=== PATIENT | male | born 1965 | race Caucasian/White ===

== ENCOUNTER 2018-11-23 05:42 | Observation (INO) | payer BC ==
[2018-11-17 13:31] LABS: HEMATOCRIT 45.4 % (42.0-52.0); HEMOGLOBIN 15.6 gm/dL (14.0-18.0); MCH 30.1 pg (26.0-34.0); MCHC 34.5 g/dL (28.0-37.0); MCV 87.2 fL (80.0-100.0); RBC 5.2 mil/uL (4.50-6.00); RDW 13.3 % (10.5-14.5); URINE BILIRUBIN NEGATIVE (Negative); URINE BLOOD NEGATIVE (Negative); URINE CLARITY SL CLOUDY; URINE COLOR YELLOW; URINE GLUCOSE-RANDOM* NEGATIVE (Negative); URINE KETONES NEGATIVE (Negative); URINE LEUKOCYTES-REFLEX NEGATIVE (Negative); URINE NITRITE-REFLEX NEGATIVE (Negative); URINE PROTEIN (DIPSTICK) NEGATIVE (Negative); URINE UROBILINOGEN 0.2 E.U./dl (0.2-1.0); WBC 6.1 thou/uL (4.0-11.0)
[2018-11-17 13:43] LABS: ALBUMIN 4.5 g/dL (3.4-5.0); CALCIUM 10.1 mg/dL (8.5-10.1); CREATININE 0.7 mg/dL (0.7-1.3); POTASSIUM 3.9 mmol/L (3.5-5.1)
[~2018-11-23] VITALS: Ht 175.3 cm; Wt 104.3 kg
[~2018-11-23 05:42] MED LIST: ASPIR 8181 M1 PO; CLONAZEPAM 1 MG1 M1 PO; FISH OIL 1,001000 M2 PO; GLUCOSAMINE &1 EAC1 PO; HYZAAR 100-251 EACH PO; MAGOX 400400 MG PO; METOPROLOL TART25 MG PO; NABUMETONE 750750 M1 PO; NASAL SPRAY30 M3 NASAL; PRILOSEC 20 MG20 MG PO; VITAMIN D1000 UNI1 PO; VITAMIN E400 UNI7 PO; ZYRTEC10 M5 PO
[2018-11-23 08:45] VITALS: BP 121/74
[2018-11-23 16:25] VITALS: BP 122/61
--- NOTE | 2018-11-23 19:38 | NUR ---
PATIENT ARRIVED ON UNIT PT ALERT XS 4. IV FLUIDS STARTED AND HAS IV ABT. HAS PICCO DRSG TO RIGHT KNEE. POLAR PACK. SCD'S ON. HAS REG DIET DINNER. DR ZUNIGA HERE TO SEE PATIENT. HAS XAVIER HOSE ON. ROOM AIR. PT GIVEN PRN PAIN MED.
[2018-11-23 19:45] VITALS: BP 136/74
[2018-11-23] MEDS ORDERED: MELATONIN5 M1 PO (21:13)
[2018-11-24 00:04] VITALS: BP 112/61
[2018-11-24 05:35] LABS: HEMATOCRIT 36.8 % (42.0-52.0); HEMOGLOBIN 12.6 gm/dL (14.0-18.0); MCH 29.9 pg (26.0-34.0); MCHC 34.2 g/dL (28.0-37.0); MCV 87.2 fL (80.0-100.0); RBC 4.22 mil/uL (4.50-6.00); RDW 13.3 % (10.5-14.5); WBC 13.1 thou/uL (4.0-11.0)
[2018-11-24 05:45] VITALS: BP 125/65
--- NOTE | 2018-11-24 07:43 | NUR ---
ASSUMED CARE AT 1900, ASSESSMENT COMPLETED. PT REPORTS PAIN IN RIGHT KNEE IS 7 OR 8 OUT OF 10, REPORTS THE PRN OXY MAKES HIM FEEL DROWSY--ASKED IF HE COULD HAVE HYDROCODONE ORDERED FOR DURING THE DAY IT KEEPS HIM AWAKE AND CONTROLS THE PAIN. DENIES NAUSEA, GOOD APPETITE OVERNIGHT, DENIES SOB--USING I.S. FREQUENTLY OVERNIGHT. HAS GOOD MOVEMENT IN RIGHT LEG WITH STRONG PULSES AND BRISK BLOOD FLOW. GENET DRESSING INTACT, SCD'S ON, POLAR PACK IN PLACE. LIKELY D/C HOME TODAY. NO OTHER CONCERNS, WILL CONTINUE TO MONITOR.
[2018-11-24 08:34] VITALS: BP 122/66
--- NOTE | 2018-11-24 08:47 | O ---
[address] [address] OPERATIVE REPORT Name: ELVIA DAVIDSON [facility]: [id number] Admission: 11/23/18 ������������������ Attend Phys: Glenroy Pinedo MD Discharge: ������������������ Date of : 69 Report #: [id number] THIS REPORT FOR: //name// CC: FAM unknown GLENROY МАРИЯ Pinedo DATE OF SERVICE: 11/23/2018 SERVICE: Orthopedics. FACILITY: [place]. SURGEON: Glenroy Pinedo MD LAW OFFICE MANAGER: Elda Godinez NP INDICATION FOR ASSISTANCE: Extremity positioning, retraction and assisting with reconstruction. PREOPERATIVE DIAGNOSIS: End-stage osteoarthritis, right knee. POSTOPERATIVE DIAGNOSIS: End-stage osteoarthritis, right knee. PROCEDURE: Right total knee arthroplasty with computer navigated robotic assistance. COMPLICATIONS: None. DRAINS: None. SPECIMENS: None. ANESTHESIA: General with regional. FINDINGS: 1. [employer] size 7 Oxinium femoral component with size 6 tibia, size 35 polyethylene insert and 9 mm poly tray. 2. The patient has slightly atypical anatomy that necessitated downsizing of the tibial component, which appears undersized medial to lateral, but was more appropriately sized in the front to back orientation. 3. Well balanced knee at the conclusion of the procedure. HISTORY: The patient is a 53-year-old gentleman with a history of end-stage osteoarthritis of the right knee that we have treated conservatively for quite some time including rest, activity modification, and physical therapy. He tried [address] [place] [address] OPERATIVE REPORT Name: ELVIA DAVIDSON Room #: 427-P [facility]..#: [id number] Admission: 11/23/18 ������������������ Attend Phys: Glenroy Pinedo MD Discharge: ������������������ Date of : 69 Report #: [id number] pharmaceutical management, all without sufficient relief. He had advanced osteoarthritis with joint space collapse, sclerosis and osteophyte formation with residual deformity and he wished to have definitive surgical management. Risks, benefits, alternatives and indications of surgery were discussed with him in detail. Risks include but not limited to pain, bleeding, infection, injury to nerves or blood vessels, persistent pain despite surgical intervention, failure of any repairs, reconstruction, progression of injury, need for further surgery including revision as well as complications related to anesthesia such as stroke, heart attack, pulmonary complications, thromboembolic disease and . Despite these risks, he wished to proceed. PROCEDURE IN DETAIL: After the right lower extremity was correctly identified in the preoperative holding area as the operative extremity, the patient underwent placement of a single shot regional nerve block. He was then taken to the operating room, where general anesthesia was induced without complication. He was padded appropriately. Prophylactic antibiotics were administered at appropriate time. Tourniquet was applied to the right leg. Right leg was then prepped and draped in standard sterile fashion. Timeout procedure was performed. Standard anterior approach was made and full thickness skin flaps were developed and medial parapatellar arthrotomy was developed and then the knee was exposed. The retropatellar fat pad was resected as were the cruciates and the anterior horns of the medial and lateral menisci. The osteophytes were resected. The [employer] instrumentation was then used to map out the patient's anatomy as well as the alignment to establish optimal positioning and sizing of the final implant. The robotic assistance was then used to prepare the distal cutting block position and the 5-in-1 distal cutting block was then placed. Femoral cuts were made. The tibia was then mapped and then the tibial cutting block was placed and the tibial cut was made as well. We assessed balancing. At that point, the knee was very well balanced in appropriate alignment in both flexion and extension and then proceeded with the arthroplasty further. The notch was prepared. The meniscal remnants were removed. The posterior osteophytes were resected after the trial was placed and then the patellar component was prepared for a 35 mm patellar inset button with the button medialized. Trials were placed. The knee was taken through full range of motion. It was found to be well balanced in flexion and extension with the 9 mm trial, so we elected to proceed with the final implants and completed the preparation of the bone and then cemented the final implants into position. The periarticular blockade was used to inject the soft tissues posteriorly, medially and laterally as well as anteriorly. After the implants were placed and the excess cement was removed, the trial poly was placed and then tourniquet was let down and hemostasis was achieved. The trial was then assessed again. I was happy with the 9 mm trial, so were placed the final 9 mm poly after thoroughly irrigating the knee once more and [address] [address] OPERATIVE REPORT Name: ELVIA DAVIDSON Room #: 427-P ADM Ariel Burnette#: [id number] Admission: 11/23/18 ������������������ Attend Phys: Glenroy Pinedo MD Discharge: ������������������ Date of : 69 Report #: [id number] then felt the knee to be stable with a new poly in place. Note that, the size 6 tibia was a better fit front to back. He had an oblong shaped tibia in terms of medial to lateral, so the tibial component is somewhat undersized. I did remove medial osteophytes to address that to some extent and allow for better balancing, which addressed a slight medial soft tissue contracture that he had on both the intraoperative assessment and the navigated calculations. With the final implants in place and hemostasis achieved, 1 gram of vancomycin powder was placed within the knee and then the arthrotomy was closed with 0 Vicryl suture in a [id number] interrupted fashion and gravity flexion test was performed. There was minimal bleeding, so no drain was utilized. Skin was then closed with 2-0 Vicryl, followed by running subcuticular 3-0 Monocryl and the robotic assistance. Stab incisions were closed as well. Sterile dressing was applied, followed by compression stocking and a cold therapy device. The patient was then awakened from anesthesia and taken to recovery room in stable condition. No complications. All counts were correct. ��������������������������������������������� <ELECTRONICALLY SIGNED> ���������������������������������������� By: Glenroy Pinedo MD ��������������������������������������������� 11/24/18 [id number] Glenroy Pinedo MD /nt
[2018-11-24 08:55] LABS: CALCIUM 8.6 mg/dL (8.5-10.1); CREATININE 0.9 mg/dL (0.7-1.3); POTASSIUM 3.7 mmol/L (3.5-5.1)
--- NOTE | 2018-11-24 10:40 | NUR ---
ASSESMENT COMPLETED. VSS. A/O. DENIES PAIN. NO NOTED SOA. NO NV. PHYSICAL THERAPY WORKING WITH PATIENT AT THIS TIME. PATIENT TOLERATING PROCEDURE. WILL CONT. TO MONITOR.
[2018-11-24] MEDS ORDERED: BANOPHEN25 M1 PO (11:53)
[2018-11-24 14:53] VITALS: BP 122/66
--- NOTE | 2018-11-24 15:19 | NUR ---
INITIAL ASSESSMENT: Pt evaluated for d/c planning needs. Reviewed chart and spoke with nurse and pt. Pt is alert and oriented. Pt lives in house with spouse and was independent with ADL's prior to admission to the hospital. Pt has walker and CPAP at home. Pt has not had home health. Pt is employed outside the home. Pt plans on returning home on d/c from hospital. Pt said he plans to go to [facility] outpatient PT in [place]. He will call to schedule appointment and make sure they are in network with his insurance. No other d/c needs indicated.
== END 2018-11-24 18:00 | disposition home or self-care (01) ==
LOC: 4E 05:42 → TBA 05:42 → PRE 05:56 → 4E 16:21
PROVIDERS: ADMIT Orthopaedic Surgery Sports Medicine
DX: M17.11 Unilateral primary osteoarthritis, right knee (principal); M75.101 Unspecified rotator cuff tear or rupture of right shoulder, not specified as traumatic
CPT/HCPCS: 10783; 50010; 50101; 50415; 50954; 51130; 51225; 51320; 52001; 53000; 53078; 54118; 55372; 56527; 56528; 57095; 57103; 57109; 57110; 57113; 57127; 57180; 62110; 62900; 64043; 65060; 70005